=== PATIENT | female | born 1940 | race Caucasian/White ===

== ENCOUNTER 2017-01-20 10:25 | Emergency (ER) | payer MEDICARE ==
[2017-01-21 14:22] VITALS: BMI 30.5
== END 2017-01-20 13:56 | disposition home or self-care (01) ==
LOC: D.ER 10:25
DX: S39.012A Strain of muscle, fascia and tendon of lower back, initial encounter (principal); S16.1XXA Strain of muscle, fascia and tendon at neck level, initial encounter; W01.0XXA Fall on same level from slipping, tripping and stumbling without subsequent striking against object, initial encounter; Y93.89 Activity, other specified; Y92.019 Unspecified place in single-family (private) house as the place of occurrence of the external cause; I10 Essential (primary) hypertension; E78.5 Hyperlipidemia, unspecified; E11.9 Type 2 diabetes mellitus without complications

== ENCOUNTER 2017-01-21 10:48 | Outpatient (CLI) | payer MEDICARE ==
[~2017-01-21] VITALS: Ht 149.9 cm; Wt 68.6 kg
[2017-01-21 14:22] VITALS: BP 109/63; Ht 149.9 cm; Wt 68.6 kg
--- NOTE | 2017-01-21 16:55 | NUR ---
1100-ARRIVED TO OPS, ESCORTED TO WAITING ROOM. 1200-TO ROOM 2502. DAUGHTER BRINGS IN LUNCH. 1300-HISTORY AND ASSESSMENT COMPLETED. 1330-IV OF NS STARTED TO R HAND X 1 22G IV. 1430-IV SITE WITHOUT REDNESS OR SWELLING. 1540-IV COMPLETED. 1550-BP LYING 140/89, SITTING 171/87, STANDING 119/93 1600-CALLED TO [facility]-LEFT ON VOICE MAIL, NO ANSWER FROM [facility] OR DR BRADLEY. 1615-D/C HOME VIA WHEELCHAIR.
== END 2017-01-21 16:15 | disposition home or self-care (01) ==
LOC: D.OPS 10:48
DX: E86.0 Dehydration (principal)